=== PATIENT | female | born 1950 | race Caucasian/White ===

== ENCOUNTER 2023-06-26 12:42 | Emergency (ER) | payer MEDICARE, SELFPAY ==
[2023-06-26 13:11] VITALS: BP 141/101
[2023-06-26 14:00] VITALS: BMI 24.0
--- NOTE | 2023-06-26 15:09 | ED.GENMED ---
History of Present Illness
General
Chief Complaint: Head Injury
Time Seen by Provider: 06/26/23 13:34
Travel History
Have you had any contact with someone who has COVID-19?: No
Do you have any symptoms of coronavirus? Fever > 100 degrees, chills, cough, shortness of breath, sore throat, loss of taste or smell, muscle aches, or headache?: No
History of Present Illness
History of Present Illness:
73-year-old female presents the emergency department for evaluation of right-sided head injury after mechanical fall. Fell onto a concrete sidewalk. Uncertain if there was a loss of conscious. Does not take any blood thinners. Denies any neck
pain, vision changes, nausea, or vomiting
Past History
Past History
ED Past Medical History: GERD and Hypercholesterolemia
ED Past Surgical History: , Gynecological and Other
Social History
Tobacco: Non-smoker
Living: with family
Review of Systems
Review of Systems
Allergies reviewed?: Yes
All Other Systems: ROS reviewed and negative except as documented in HPI and ROS
Phy Exam
Physical Exam
Physical Exam:
GEN: Well appearing, NAD, WDWN
HEENT: Large soft hematoma to the right frontal forehead, oral mucosa moist, no scleral icterus, no nasal congestion
Cardiac: Regular rate
Lung: No respiratory distress, no tachypnea
MSK: No gross deformity or injuries
Skin: Good color, no pallor or jaundice, no rashes
Neuro: AO x3; CN II-XII grossly intact. BUE strength 5/5 in all hatch, sensation intact and symmetric. BLE strength 5/5 in all hatch, sensation intact and symmetric
Psych: Calm, cooperative
Course
Orders/Labs/Results
Orders:
Orders
06/26/23 13:54
CT Head W/o Iv Contrast Urgent
Comment:
Reason For Exam: head trauma
Vital Signs
Initial and Last Documented VS:
Initial Vital Signs
Temp Pulse Resp BP Pulse Ox
97.7 F 89 20 141/101 97
06/26/23 13:11 06/26/23 13:11 06/26/23 13:11 06/26/23 13:11 06/26/23 13:11
Last Documented Vital Signs
Temp Pulse Resp BP Pulse Ox
97.7 F 89 20 141/101 97
06/26/23 13:11 06/26/23 15:24 06/26/23 13:11 06/26/23 15:24 06/26/23 13:11
MDM/Problems Addressed
MDM/Problems Addressed:
CT of the head obtained due to the large hematoma and age greater than 65, no evidence for skull fracture or intracranial hemorrhage. She is neurologically intact. Discussed further supportive care,Suitable for discharge home
*Critical Care Note
Total Time (30-74mins, 75-104mins- exclusive of procedures): Not Applicable
ED Attending Note
-
Portions of this chart may have been created with voice recognition software.� Occasional wrong word or��sound alike� substitutions may have occurred due to the inherent limitations of voice recognition software.
Discharge Plan
Departure
Patient Disposition: Home (Routine Discharge)
Date of Disposition: 06/26/23
Time of Disposition: 15:10
Patient with high blood pressure during this ER visit?: No
Discharge Problem:
Hematoma of frontal scalp
Instructions: Head Injury in Adults (DC)
Prescriptions:
No Action
esomeprazole magnesium [Nexium 24HR] 20 MG capsule,delayed release(DR/EC)
20 mg PO DAILY
fexofenadine-pseudoephedrine [Kindra-D 24 Hour] 1 EACH tablet extended release 24 hr
1 dose PO DAILY
Patient Comments:
unkn dose
Lipitor:
1 tab PO DAILY
Patient Comments:
unkn dose
Premarin
0 mg PO DAILY
oxycodone-acetaminophen 5 MG/325 MG tablet
1 tab PO Q4HPRN PRN (Reason: pain) Qty: 15 0RF
tamsulosin 0.4 MG capsule
0.4 mg PO DAILY Qty: 10 0RF
ondansetron 4 MG tablet,disintegrating
4 mg PO TIDPRN PRN (Reason: NAUSEA) Qty: 10 0RF
Levoxyl
1 tab PO DAILY
Patient Comments:
unkn dose
levofloxacin 500 MG tablet
500 mg PO DAILY 6 Days 0RF
Mucinex
1 tab PO DAILY
Sudafed
1 tab PO DAILY
hydrocodone-acetaminophen 1 TABLET tablet
1 tab PO Q4HPRN PRN (Reason: pain) Qty: 15 0RF
ondansetron 4 MG tablet,disintegrating
4 mg PO TIDPRN PRN (Reason: Nausea) Qty: 10 0RF
oxycodone-acetaminophen 5 MG/325 MG tablet
1 tab PO Q4HPRN PRN (Reason: pain) Qty: 18 0RF
Referrals:
Moon Calvillo MD [Family Provider] -
Interventions
Interventions:
*Risk Screen - Suicide Last Done: 06/26/23 14:00
*General Assessment Last Done: 06/26/23 14:00
*Neglect/Abuse Screening Last Done: 06/26/23 14:00
*ED COVID-19 Vaccine History Last Done: 06/26/23 13:11
*Nursing Disposition Last Done: 06/26/23 15:24
ED- Neurological Assessment Last Done: 06/26/23 14:00
ED-Skin Assessment Last Done: 06/26/23 14:00
Discharge Date and Time
Discharge Date/Time: 06/26/23 15:24
Print Language: CITIZEN OF [place]
[2023-06-26 15:24] VITALS: BP 141/101
== END 2023-06-26 15:24 | disposition home or self-care (01) ==
LOC: EMR 12:42
PROVIDERS: EMERGENCY PHYSICIAN Emergency Medicine; FAMILY PHYSICIAN Internal Medicine
DX: S00.03XA Contusion of scalp, initial encounter (principal); X58.XXXA Exposure to other specified factors, initial encounter; K21.9 Gastro-esophageal reflux disease without esophagitis; E78.00 Pure hypercholesterolemia, unspecified
CPT/HCPCS: 99284; 70450

== ENCOUNTER 2023-10-18 00:39 | Emergency (ER) | payer MEDICARE, SELFPAY ==
[2023-10-18 00:46] VITALS: BP 137/80
[2023-10-18 01:18] VITALS: BMI 24.3
[2023-10-18 01:20] LABS: Urine Albumin Trace (Neg - Trace); Urine Bilirubin Negative (Negative); Urine Character Clear (Clear); Urine Color Yellow; Urine Glucose Negative (Negative); Urine Ketone Trace (Negative); Urine Leukocyte Negative (Negative); Urine Nitrite Negative (Negative); Urine Occult Blood Negative (Negative); Urine Urobilinogen Negative (Neg - 1+)
--- NOTE | 2023-10-18 01:48 | ED.GENMED ---
History of Present Illness
General
Chief Complaint: Back Pain
Source: patient
Exam Limitations: none
Time Seen by Provider: 10/18/23 01:17
Nursing documentation reviewed up to this point in time: agreed with
History of Present Illness
History of Present Illness:
Patient presents to ED secondary to sudden onset of back pain radiating to abdomen while she was at home around 9:30 PM. Denies fever or chills. Patient has had multiple vomiting episodes prior to arrival. Denies diarrhea. Denies chest pain.
Denies trauma. Denies recent illness. Patient denies any discomfort during the day. Denies previous history of similar symptoms. Patient has had history of kidney stones, but states that her symptoms are different. Denies recent change in
medications or diet. Denies recent change in level of activities.
Past History
Past History
ED Past Medical History: GERD and Hypercholesterolemia
ED Past Surgical History: , Gynecological and Other
Social History
Tobacco: Non-smoker
Living: with family
Review of Systems
Review of Systems
Allergies reviewed?: Yes
All Other Systems: ROS reviewed and negative except as documented in HPI and ROS
Constitutional: Reports no symptoms
EENT: Reports no symptoms
Respiratory: Reports no symptoms
Cardiac: Reports no symptoms
ABD/GI: Reports nausea, vomiting and diarrhea; Denies abdominal pain
Musculoskeletal: Reports back pain
Skin: Reports no symptoms
Neurological: Reports no symptoms
Phy Exam
Physical Exam
Physical Exam:
Physical Exam
General: mild painful distress, not acutely ill. afebrile
Head: nc/at. eomi
Neck: supple. no meningeal signs.
Heart: s1/s2 regular rate and rhythm, no murmur. equal radial pulses.
Lungs: no acute respiratory distress. clear bilaterally
Abdomen: normal bowel sounds. mild epigastric tenderness to palpation.
Neuro: alert and oriented. no focal neurological deficits
Skin: no rash
Psychiatric: well kept. interactive and cooperative
Extremities: no edema. no calf tenderness.
Course
Orders/Labs/Results
Orders:
Orders
10/18/23 00:52
Electrocardiogram (*1) Urgent
Reason for Study: Chest Pain
EKG- Treatment ONCE
10/18/23 01:14
Urinalysis Reflex To Culture Urgent
Date Specimen was Collected: 10/18/23
Time Specimen was Collected: 00:55
10/18/23 01:40
0.9% Sodium Chloride 500 ml [Nss] 500 ml IV BOLUS
HYDROmorphone [Dilaudid] 0.5 mg IV NOW STA
Ketorolac [Toradol] 15 mg IV NOW STA
Ondansetron Injectable [Zofran] 4 mg IV NOW STA
US Abdomen Complete/Upper Urgent
Comment:
Reason For Exam: epigastric pain
10/18/23 01:53
Complete Blood Count/With Diff Urgent
10/18/23 02:50
HYDROmorphone [Dilaudid] 0.5 mg .ROUTE .STK-MED ONE
10/18/23 02:53
HYDROmorphone [Dilaudid] 0.5 mg IV NOW STA
10/18/23 03:07
Comprehensive Metabolic Panel Urgent
Comment: REDRAW
Lipase Urgent
10/18/23 05:32
Oxycodone/Acetaminophen [Percocet 5/325] 1 tablet PO NOW STA
Abnormal Lab Results
10/18/23 10/18/23 10/18/23
01:14 01:53 03:07
WBC 15.1 H 10^3/uL
(4.8-10.8)
MCH 31.5 H pg
(27.0-31.0)
MPV 10.5 H fL
(7.4-10.4)
Abs Immat Gran (auto) 0.1 H 10^3/uL
(0-0.05)
Absolute Neuts (auto) 12.5 H 10^3/uL
(1.4-6.5)
Absolute Monos (auto) 1.0 H 10^3/uL
(0.1-0.6)
Neutrophils % 82.8 H %
(42.2-75.2)
Lymphocytes % 8.9 L %
(20.5-51.1)
Chloride 111 H mmol/L
(98-107)
Glucose 104 H mg/dl
(70-99)
AST 78 H U/L
(14-36)
Urine Ketones Trace A
(Negative)
10/18/23 01:53
10/18/23 03:07
Vital Signs
Initial and Last Documented VS:
Initial Vital Signs
Temp Pulse Resp BP Pulse Ox
98.0 F 53 18 137/80 99
10/18/23 00:46 10/18/23 00:46 10/18/23 00:46 10/18/23 00:46 10/18/23 00:46
Last Documented Vital Signs
Temp Pulse Resp BP Pulse Ox
98.0 F 75 16 139/60 99
10/18/23 00:46 10/18/23 02:49 10/18/23 02:49 10/18/23 02:49 10/18/23 02:49
MDM/Problems Addressed
MDM/Problems Addressed:
History, exam, and ultrasound consistent with likely biliary colic, without any evidence of acute cholecystitis nor any obstructive findings. Patient reports complete resolution of symptoms after treatment. Repeat abdominal exam: Soft and
nontender. However, patient does report that she has had frequent back pain/spasm in the past, although different than today. As such, difficult to completely exclude potential back spasm as etiology behind her pain. Nonetheless, patient is
afebrile, hemodynamically stable, and nontoxic-appearing at time of discharge. Patient will be provided with prescription for short course of pain medication, as well as referral to general surgery for an outpatient consultation. Advised to return
to ED with worsening symptoms, i.e. fever/worsening pain/vomiting.
*EKG
Interpreted by ED Provider?: Yes
EKG Intrepretation Date: 10/18/23
Heart Rate: 49
Rate: bradycardiac
Rhythm: sinus
[place]: normal axis
Interval: normal interval
*Critical Care Note
Total Time (30-74mins, 75-104mins- exclusive of procedures): Not Applicable
ED Attending Note
-
Portions of this chart may have been created with voice recognition software.� Occasional wrong word or��sound alike� substitutions may have occurred due to the inherent limitations of voice recognition software.
Discharge Plan
Departure
Patient Disposition: Home (Routine Discharge)
Date of Disposition: 10/18/23
Time of Disposition: 05:31
Patient with high blood pressure during this ER visit?: Yes
Discharge Problem:
Biliary colic
Instructions: Gallstones (DC), Low-fat diet
Prescriptions:
New
oxycodone-acetaminophen [Percocet] 5-325 mg Tablet
1 tab PO Q6HPRN PRN (Reason: pain) Qty: 12 0RF
ondansetron 4 mg Tablet,Disintegrating
4 mg PO TIDPRN PRN (Reason: nausea/vomiting) Qty: 12 0RF
No Action
esomeprazole magnesium [Nexium 24HR] 20 MG capsule,delayed release(DR/EC)
20 mg PO DAILY
fexofenadine-pseudoephedrine [Kindra-D 24 Hour] 1 EACH tablet extended release 24 hr
1 dose PO DAILY
Patient Comments:
unkn dose
Lipitor:
1 tab PO DAILY
Patient Comments:
unkn dose
Premarin
0 mg PO DAILY
oxycodone-acetaminophen 5 MG/325 MG tablet
1 tab PO Q4HPRN PRN (Reason: pain) Qty: 15 0RF
tamsulosin 0.4 MG capsule
0.4 mg PO DAILY Qty: 10 0RF
ondansetron 4 MG tablet,disintegrating
4 mg PO TIDPRN PRN (Reason: NAUSEA) Qty: 10 0RF
Levoxyl
1 tab PO DAILY
Patient Comments:
unkn dose
levofloxacin 500 MG tablet
500 mg PO DAILY 6 Days 0RF
Mucinex
1 tab PO DAILY
Sudafed
1 tab PO DAILY
hydrocodone-acetaminophen 1 TABLET tablet
1 tab PO Q4HPRN PRN (Reason: pain) Qty: 15 0RF
ondansetron 4 MG tablet,disintegrating
4 mg PO TIDPRN PRN (Reason: Nausea) Qty: 10 0RF
oxycodone-acetaminophen 5 MG/325 MG tablet
1 tab PO Q4HPRN PRN (Reason: pain) Qty: 18 0RF
Referrals:
Franko Massey MD [Active] -
Moon Calvillo MD [Family Provider] -
Activity Restrictions/Additional Instructions:
As discussed, please follow-up with referred general surgeon for further evaluation and treatment. Your prescriptions have been sent electronically to the [facility] pharmacy in [place]. Please return to ED with worsening symptoms, i.e.
fever/worsening pain/vomiting.
Interventions
Interventions:
*Risk Screen - Suicide Last Done: 10/18/23 01:18
*Neglect/Abuse Screening Last Done: 10/18/23 01:18
*ED COVID-19 Vaccine History Last Done: 10/18/23 01:18
*Nursing Disposition Last Done: 10/18/23 05:59
ED-Musculoskeletal Assessment Last Done: 10/18/23 01:18
Discharge Date and Time
Discharge Date/Time: 10/18/23 05:59
Print Language: WEL[place]
[2023-10-18] MEDS: TORADOL 15 MG IV (01:49)
[2023-10-18] MEDS: DILAUDID 0.5 MG IV ×2 (01:49→02:53)
[2023-10-18] MEDS: NSS 500 IV (01:49)
[2023-10-18] MEDS: ZOFRAN 4 MG IV (01:50)
[2023-10-18 01:58] LABS: % Basophils 0.3 % (0-2); % Eosinophils 0.9 % (0-6); % Immature Granulocytes 0.4 % (0-0.5); % Lymphocytes 8.9 % (20.5-51.1); % Monocytes 6.7 % (1.7-9.3); % Neutrophils 82.8 % (42.2-75.2); Absolute Basophils 0.1 10^3/uL (0-0.2); Absolute Eosinophils 0.1 10^3/uL (0-0.7); Absolute Immature Granulocytes 0.1 10^3/uL (0-0.05); Absolute Lymphocytes 1.4 10^3/uL (1.2-3.4); Absolute Neutrophils 12.5 10^3/uL (1.4-6.5); Hematocrit 39.3 % (37.0-47.0); Mean Corp Hgb Conc. 35.6 g/dL (33.0-37.0); Mean Corpuscular Hgb 31.5 pg (27.0-31.0); Mean Corpuscular Volume 88.3 fL (81.0-99.0); Mean Platelet Volume 10.5 fL (7.4-10.4); Nucleated Red Blood Cells % 0 %; Platelet Count 190 10^3/uL (130-400); Red Blood Cell Count 4.45 10^6/uL (4.20-5.40); Red Cell Dist. Width 13.5 % (11.5-14.5); White Blood Cell Count 15.1 10^3/uL (4.8-10.8)
[2023-10-18 02:49] VITALS: BP 139/60
[2023-10-18 03:51] LABS: ALT (SGPT) 34 U/L (0-35); AST (SGOT) 78 U/L (14-36); Albumin 3.9 g/dl (3.5-5.0); Alkaline Phosphatase 77 U/L (38-126); Blood Urea Nitrogen 17 mg/dl (7-17); Calcium 8.8 mg/dl (8.4-10.2); Carbon Dioxide 22 mmol/L (22-30); Chloride 111 mmol/L (98-107); Estimated Creatinine Clearance 51 ml/min; Glucose 104 mg/dl (70-99); Lipase 179 U/L (23-300); Potassium 3.6 mmol/L (3.5-5.1); Sodium 141 mmol/L (135-145); Total Bilirubin 0.6 mg/dl (0.2-1.3); Total Protein 6.5 g/dl (6.3-8.2); eGFR > 60.00
[2023-10-18] MEDS: PERCOCET 5/325 1 TABLET PO (05:40)
== END 2023-10-18 05:59 | disposition home or self-care (01) ==
LOC: EMR 00:39
PROVIDERS: EMERGENCY PHYSICIAN Emergency Medicine; FAMILY PHYSICIAN Internal Medicine
DX: K80.70 Calculus of gallbladder and bile duct without cholecystitis without obstruction (principal); R03.0 Elevated blood-pressure reading, without diagnosis of hypertension
CPT/HCPCS: 99285; 96374; 96375 ×2; 96376; 96361; 76700; 80053; 81003; 83690; 85025; 93005

== ENCOUNTER 2023-12-01 06:30 | Day surgery (SDC) | payer MEDICARE, SELFPAY ==
[2023-12-01] VITALS (10 sets, daily range): BP systolic 117–155; BP diastolic 57–82
[2023-12-01] MEDS: NORMOSOL-R/PLASMALYTE-A 1000 IV (09:39)
[2023-12-01] MEDS: TYLENOL 1000 MG PO (09:39)
[2023-12-01] MEDS: IC GREEN 2.5 MG IV (09:43)
--- NOTE | 2023-12-01 12:46 | OR.RPT ---
Addendum entered and electronically signed by Franko Massey MD 12/07/23 09:18:
The assistance of Mago ESPINO was required due to the complexity of the procedure. During the procedure she assisted with retraction, resection, and closure of the wound.
Original Note:
Operative Report
Operative Report
Primary Surgeon: Shilpa
Assisting: Mago ALVARENGA
Pre-op Diagnosis: Biliary colic
Post-op Diagnosis: Chronic cholecystitis
Procedure Performed: Robot assisted laparoscopic cholecystectomy
Anesthesia Type: GETA
Specimen / Cultures: Gallbladder
Estimated Blood Loss: 10cc
Complications: None immediate
Operative Findings: Contracted, fibrotic gallbladder with filmy adhesions
Date of Surgery:� 12/01/23
Indications: This 73F developed right upper quadrant pain. Work-up showed gallstones, essentially unremarkable liver enzymes and no ductal dilation. Laparoscopic cholecystectomy with robotic assist was elected.
Description of procedure: The patient was placed on the operating table in the supine position. General anesthesia was induced. A time-out was completed verifying correct patient, procedure, site, positioning, and special equipment prior to
beginning this procedure. An orogastric tube was placed. The abdomen was prepped and draped in the usual sterile fashion. A stab incision was made in left upper quadrant and the Veress needle was inserted. Proper position was confirmed by aspiration
and saline meniscus test. The abdomen was insufflated with carbon dioxide to a pressure of 12mmHg. The patient tolerated insufflation well.
A 8mm trocar was then inserted above the umbilicus. The laparoscope was inserted and the abdomen inspected. No injuries from initial trocar placement or Veress needle insertion were noted. Additional 8mm trocars were then inserted in the following
locations: two in the right lower quadrant and to the left of the umbilicus and just above. The abdomen was inspected and no abnormalities were found. The table was placed in the reverse Trendelenburg position with the right side up. The gallbladder
was identified. It was contracted with a thickened fibrotic wall and surrounding filmy adhesions to omentum. The dome of the gallbladder was grasped with an atraumatic grasper and retracted over the dome of the liver. Adhesions were gently bluntly
stripped away from the gallbladder. The infundibulum was then grasped with an atraumatic grasper and retracted toward the right lower quadrant. This maneuver exposed Calot�s triangle. The peritoneum overlying the gallbladder infundibulum was then
incised and the cystic duct and cystic artery identified and circumferentially dissected so that a clear view of the liver was achieved through a window between the cystic duct an cystic artery. At this time, the only two structures going into the
gallbladder were the cystic artery and cystic duct. The CBD was identified with ICG and protected.
The cystic duct was then doubly clipped and divided. The cystic artery was controlled with bipolar and divided. The gallbladder was then dissected from its peritoneal attachments by electrocautery. The posterior plane was obliterated and fibrotic.
The gallbladder was removed using an endoscopic retrieval bag placed through the umbilical port. The gallbladder was passed off the table as a specimen. The gallbladder fossa was closely inspected. There was no evidence of bleeding from the
gallbladder fossa or cystic artery or leakage of the bile from the cystic duct stump. The umbilical trocar site was closed at the fascial level with 2-0 PDS. Secondary trocars were removed under direct vision and noted to be hemostatic. The abdomen
was allowed to collapse. The skin was closed with subcuticular sutures of 4-0 monocryl and topical skin adhesive. The orogastric tube was removed.
The patient tolerated the procedure well and was taken to the postanesthesia care unit in stable condition.
[2023-12-01] MEDS: MORPHINE SULFATE 2 MG IV ×2 (13:29→13:51)
== END 2023-12-01 15:32 | disposition home or self-care (01) ==
LOC: SDS 06:30
PROVIDERS: ATTENDING PHYSICIAN Surgery; FAMILY PHYSICIAN Internal Medicine
DX: K80.10 Calculus of gallbladder with chronic cholecystitis without obstruction (principal); K66.0 Peritoneal adhesions (postprocedural) (postinfection)
CPT/HCPCS: 47562; 88304

== ENCOUNTER → 2024-02-03 12:53 | Outpatient (REF) | payer MEDICARE, SELFPAY | LOC: WDC 12:53 | PROVIDERS: ATTENDING PHYSICIAN Obstetrics & Gynecology; FAMILY PHYSICIAN Internal Medicine | DX: Z12.31 Encounter for screening mammogram for malignant neoplasm of breast (principal) | CPT/HCPCS: 77063; 77067 ==

== ENCOUNTER → 2024-08-09 13:27 | Outpatient (REF) | payer MEDICARE, SELFPAY | LOC: REG 13:27 | PROVIDERS: ATTENDING PHYSICIAN Hospitalist | DX: E78.5 Hyperlipidemia, unspecified (principal) | CPT/HCPCS: 36415 ==

== ENCOUNTER → 2025-02-05 13:12 | Outpatient (REF) | payer MEDICARE, SELFPAY | LOC: WDC 13:12 | PROVIDERS: ATTENDING PHYSICIAN Hospitalist | DX: Z12.31 Encounter for screening mammogram for malignant neoplasm of breast (principal) | CPT/HCPCS: 77063; 77067 ==

== ENCOUNTER → 2025-02-14 08:26 | Outpatient (REF) | payer MEDICARE, SELFPAY | LOC: WDC 08:26 | PROVIDERS: ATTENDING PHYSICIAN Hospitalist | DX: R92.8 Other abnormal and inconclusive findings on diagnostic imaging of breast (principal) | CPT/HCPCS: 76642 ==

== ENCOUNTER → 2025-02-19 11:45 | Outpatient (REF) | payer MEDICARE, SELFPAY ==
--- NOTE | 2025-02-19 14:37 | OID.BR.INTR ---
[facility] Breast Navigator - Initial
- -
Date of Contact: 02/19/25
Met with patient. Patient given written information on navigator service available at [facility] [address]. Will follow up as needed per protocol.
== END ==
LOC: WDC 11:45
PROVIDERS: ATTENDING PHYSICIAN Hospitalist; FAMILY PHYSICIAN Internal Medicine
DX: N63.21 Unspecified lump in the left breast, upper outer quadrant (principal)
CPT/HCPCS: 19083; 88305; A4648